=== PATIENT | male | born 1960 | race Caucasian/White ===

== ENCOUNTER → 2022-10-28 | Outpatient (CLI) | payer OTHER, SELFPAY ==
--- NOTE | 2022-10-28 15:04 | CT_ITS ---
EXAM: CT RIGHT LOWER EXTREMITY WITHOUT INTRAVENOUS CONTRAST CLINICAL INDICATION: PRE OP WAS TECHNIQUE: Helically acquired images were obtained of the right lower extremity without intravenous contrast. 2-D reformats were performed by the technologist. CTDIvol = ( 18.76 ) mGy, DLP = ( 1131.31 ) mGycm This CT exam was performed using one or more of the following dose reduction techniques: automated exposure control, adjustment of the mA and/or kV according to patient size, and/or use of iterative reconstruction technique. This report was created using Trend[employer] report Spotjournal technology. COMPARISON: None. FINDINGS: BONES/JOINTS: [id number] suprapatellar joint effusion. No acute or healing fracture or malalignment. No unusual lytic or sclerotic lesions of bone. Moderate osteoarthrosis of the medial femorotibial compartment of the knee. Synovial herniation pits at the right anterolateral femoral neck. Moderate right hip osteoarthrosis. Small posterior calcaneal enthesophyte. SOFT TISSUES: Fat-containing right inguinal hernia. No soft tissue swelling or gas. No radiopaque foreign body. VASCULATURE: Prominent venous varicosities about the knee/lower extremity. Peripheral vascular calcifications involving the extremity. CT/Extremity Lower without Contra IMPRESSION: 1. Preoperative planning study showing degenerative changes involving the joints. 2. Small to moderate suprapatellar joint effusion. 3. No acute or healing fracture or malalignment. 4. Additionally ancillary findings as above. Electronically Signed: Vikram Phan MD at 22:10 EST ,
== END | disposition home or self-care (01) ==
LOC: CT 15:04
PROVIDERS: PCP Family Medicine; Referring Provider Orthopaedic Surgery; Visit Provider Orthopaedic Surgery
DX: M17.11 Unilateral primary osteoarthritis, right knee (principal)
CPT/HCPCS: 73700

== ENCOUNTER 2022-12-13 16:01 | Observation (INO) | payer OTHER, SELFPAY ==
--- NOTE | 2022-12-03 12:10 | RAD_ITS ---
STUDY: X-RAY CHEST REASON FOR EXAM: Male, 62 years old. Preoperative evaluation. TECHNIQUE: Frontal and lateral views of the chest. COMPARISON: None. FINDINGS: The lungs are clear and expanded. There is no demonstrated pleural abnormality. Cardiomegaly with sternotomy wires and single lead cardiac pacer. Normal mediastinum and eliane. Normal visualized pulmonary arteries. Aortic tortuosity. Diffuse thoracic spondylosis. Normal visualized ribs, clavicles, and shoulders. There is no demonstrated abnormality of the visualized soft tissue structures of the upper abdomen. RAD/Chest PA and Lateral IMPRESSION: Cardiomegaly with no acute or active cardiopulmonary disease. Electronically Signed: Dakota Basilio, at 13:23 EST ,
[2022-12-03 12:29] LABS: Absolute Lymphocyte Count 2.29 X10^3/uL (0.83-4.51); Absolute Neutrophil Count 5.3 X10^3/uL (2.0-7.7); Basophil# 0.03 X10^3/uL; Basophil% 0.4 % (0-1); Eosinophil# 0.13 X10^3/uL; Eosinophils% 1.5 % (0-5); Hematocrit 39.7 % (40-54); Hemoglobin 12.7 g/dL (13.0-16.5); Lymphocyte # 2.29 X10^3/ul (0.83-4.51); Lymphocyte % 27.1 % (19-41); Mean Corpuscular Hgb 31.1 pg (27.0-32.0); Mean Corpuscular Volume 97.3 fL (80-94); Monocyte# 0.63 X10^3/uL; Monocyte% 7.4 % (0-10); NRBC Flagged by Analyzer 0 % (0-5); Neutrophil # 5.33 X10^3/uL (2.7-7.7); Platelet Count 194 K/mm3 (150-450); RBC Distribution Width CV 13.2 % (11.6-14.6); Red Blood Count 4.08 M/mm3 (4.6-6.2); White Blood Count 8.5 K/mm3 (4.4-11.0)
[2022-12-03 12:55] LABS: Anion Gap 5 (5-15); BUN 13 mg/dL (7-18); BUN/Creat Ratio 15.6 RATIO (10-20); Calcium,Total 8.9 mg/dL (8.5-10.1); Chloride 104 mmol/L (98-107); Creatinine, Serum 0.84 mg/dL (0.70-1.30); EST Glomerular Filtration Rate 99 mL/min (>60); Est Glom Filt Rate - Afr Amer 120 mL/min (>60); Glucose 108 mg/dL (74-106); Magnesium 2.1 mg/dL (1.6-2.6); Potassium 4.2 mmol/L (3.5-5.1); Sodium Level 141 mmol/L (136-145)
[2022-12-13] VITALS (19 sets, daily range): BP systolic 117–130; BP diastolic 63–94; PULSE 71–92; RESP 14–19; TEMP 36.2–36.9; O2SAT 94–100; BMI 39.8; BMI 40.2
--- NOTE | 2022-12-13 | KNEE_PTH ---
PATIENT: SARAH BALBUENA LOC: [facility] U#:[id number] AGE/SX: 62/M ROOM: [facility] RE12/13/[address]: Dr. Chaka Zavala MD : 1960 BED: 1 DIS: 12/14/2022 SPEC #: [id number] RECD: 12/13/22 16:23 STATUS: HENRY REPadmini #: [id number] CAITLIN: 12/13/22 00:[address]: Serge García DEPT: SURGICAL PATHOLOGY RECD BY: Deandre Lake ENTERED: 12/14/22 09:06 SP TYPE: TOTAL KNEE OTHR DR: MD Dr. Angela Ambrose MD Dr. Ben Weeman, MD Dr. David Kittoe, MD Dr. Douglas Raber, MD Dr. Rodney Miller, MD Tissues: Knee, NOS Procedures: Decalcification bone/plaque Surgery Specimen Level IV Comments: @ Ordering doctor for DEC edited from to DR.[email or web address] Alvarenga by DENIZ at 12/14/22 1326 @ Ordering doctor for SUIV edited from to DR.[email or web address] Alvarenga by DENIZ at 12/14/22 1326 @ Submitting doctor edited from to DR.[email or web address] Alvarenga by DENIZ at 12/14/22 1326 HEADER OPERATION: ERAS, total knee replacement PRE-OP DIAGNOSIS: Osteoarthritis right knee TISSUE SUBMITTED: Right knee bone and tissue MICROSCOPIC DIAGNOSIS Bone and tissue of right knee, total knee resection: Severe degenerative joint disease. Mild synovial hyperplasia. AM:ny 12/17/2022 MICROSCOPIC DESCRIPTION Slides are reviewed. GROSS DESCRIPTION Received is one container designated bone and soft tissue right knee. The specimen consists of multiple fragments of cunha-yellow bone measuring in aggregate 17 x 15 x 2 cm. Also in the specimen container are multiple fragments of yellow-white soft tissue measuring in aggregate 9 x 8 x 2.5 cm. A number of bony fragments contain articular surfaces consistent with tibial plateau and femoral condyle and displaying prominent osteophyte formation, eburnation, and bone erosion. Program Counselor sections are submitted in two cassettes as follows: 1 - soft tissue, 2 - bone after decalcification. / AM:ny 12/14/2022 TC:5 CPT: 12963, 13154
[2022-12-13 10:56] LABS: Bedside Glucose 88 mg/dL (74-106)
[2022-12-13] MEDS: Lactated Ringers 1,000 ML 15 ML IV ×2 (10:57→15:30)
[2022-12-13] MEDS: Gabapentin 600 MG Tablet PO (10:58)
[2022-12-13] MEDS: Celecoxib 200 MG Capsule 400 MG PO (10:58)
[2022-12-13] MEDS: Acetaminophen 500 MG Tablet 1000 MG PO ×2 (10:58→22:19)
[2022-12-13] MEDS: Scopolamine 1mg/72hr Patch 1 PATCH TD ×2 (10:58→14:30)
[2022-12-13] MEDS: TXA 1000mg in NS100 100ml (IVPB at Closure) 660 MG IV (14:16)
[2022-12-13] MEDS: dexAMETHasone 10 MG/ML Vial IV (14:40)
[2022-12-13] MEDS: TXA 1000mg in NS100 100ml (IVPB at Incision) 660 MG IV (15:38)
--- NOTE | 2022-12-13 15:52 | OP.PCM_ITS ---
Problems Associated Problem List Diagnoses (1) Arthritis of knee, right: Operative Report Date of Procedure: 12/13/22 Preoperative diagnosis: [Right ] knee severe osteoarthritis Postoperative diagnosis: Same Title of procedure : [R] total knee replacement Surgeon: Serge García MD Pattern Marking Supervisor: Rowena Ambriz PA-C Anesthesia: Spinal, adductor canal nerve block Anesthesiologist: Dr. Nixon Special medications: Ancef 3 g IV, tranexamic acid 1 g IV x2 EBL: 50 Tourniquet time 63 minutes Indications for surgery: Patient is a [62]-year-old [male] with a history of knee arthritis appropriately treated and failed conservative measures and wished to proceed with total knee replacement. Patient was cleared for surgery by the medical doctor and has been evaluated by the anesthesia staff Findings: Intraoperative findings showed severe arthritis of the knee. Patient underwent knee replacement using OpenSpan triathlon total knee components. Cemented femur sixe 6 CR, Press-fit , size [7 tibia, [35 x 10] asymmetric X3 patella, size [7-10 CS] X3 tibial polyethylene insert, knee was nicely balanced. Patella tracked well. Patient underwent standard wound closure in layers. Vicryl and strata fix sutures utilized with skin mavis. production assistant, physician teacher's assistant, was utilized throughout the entire procedure. They were vital in helping with patient positioning, holding of retractors, exposing the tissues adequately for safe completion of the procedure including cutting of the bone, helping appellate court judge appropriate alignment and sizing of the components, implantation of the components, as well as wound closure, bandage application, and safe patient transfer. Without surgical resident, physician teacher's assistant, surgical time would have been significantly increased, and surgical outcome could have been less optimal. Description of procedure: The patient was taken to the OR, transferred to the OR table. They were given a spinal anesthetic. Ancef was given IV preoperatively. Tranexamic acid was given IV preoperatively. Well-padded tourniquet was applied to the upper thigh of the operative leg. Nonoperative leg had a RIYA hose and SCD on throughout. Operative limb was prepped padded and draped in usual orthopedic sterile fashion for the procedure. We began by injecting the pain relieving solution in the anterior superior aspect of the knee region. The limb was exsanguinated, and the tourniquet was applied to 300 mmHg. Made a midline incision through skin, subcutaneous tissue, bringing down us on the extensor mechanism. Medial parapatellar arthrotomy was carried out. Straw-colored joint fluid was evacuated. We raised a sleeve of tissue off the upper medial tibia. Resected some of the infrapatellar fat pad. We remove degenerative medial and lateral meniscus. Removed bone spurs from about the patella. We removed tissue off the anterior aspect of the distal femur. Patella was translated laterally and/or everted as needed throughout the procedure. ACL was resected. PCL was preserved. Collateral ligaments were preserved. Physician placed the retractors and teacher's assistant held retractors protecting above ligaments throughout the procedure. Cartilage was removed from the distal femur and upper tibia at the appropriate locations. Next custom cutting block was applied to the front of the femur. Appropriate external rotation . Distal femoral cut carried out. 4-in-1 cutting premade block was applied to the distal femur and held in place with 4 pins. Pattern Marking Supervisor again held retractors to protect the soft tissues while surgeon performed anterior, posterior, and chamfer cuts. Bony fragments were removed. PCL retractor was placed and collateral ligament protectors placed by the surgeon, held by the assistance. Tibial external alignment guide was utilized under standard technique going down the shaft of the tibia, to the base of the second metatarsal. Appropriate posterior slope was built in. Pattern Marking Supervisor help appellate court judge alignment. Cutting block was held in place with 3 pins. Again checked the external alignment. Tibial cut carried out with a saw while the teacher's assistant held retractors protecting the soft tissues about the anterior, medial, lateral, and posterior knee. Bone fragment removed. We then sized off the upper tibia with the help of the teacher's assistant. We then checked flexion extension gaps finding them to be adequate and equal. Next the distal femoral trial was applied. Tibial tray was allowed to freefloat with a 9 mm insert. Knee was flexed and extended an external alignment guide is utilized. Tibial trial was pinned in place. Drill holes were placed into the distal femoral trial and it was removed. Punch was used on the upper tibial component and that was removed. The sclerotic bone was softened with a sharp pin. Bone spurs removed from the posterior medial and posterior lateral aspect of the femur while the teacher's assistant lifted up on the distal femur and exposed each compartment. Patella was everted and measured and appropriate resection was carried out while the teacher's assistant held the guide and patella in good position. Patellar remnant measured to be at or just greater than 14 mm. Patella was sized. Clamp was utilized. 3 drill holes were placed through the clamp held by the teacher's assistant. Trial patella was placed and removed. Bleeding was controlled at the back of the knee with the bovey. Posterior knee soft tissues were carefully injected with pain relieving solution. Components were checked and open. Two full batches of bone cement were mixed. Knee was thoroughly irrigated with Irrisept and sterile Betadine.. The bony surfaces cleaned and dried. We press- fit the tibia, cemented femur, and press fit patella component.. Pattern Marking Supervisor held retractors exposing the bony surfaces of the tibia and femur which were hammered in position. Patella clamped into position. We re-trialed with the help of the teacher's assistant and then placed the appropriate sized polyethylene component after cement hardened. We thoroughly irrigated and debrided the knee. Bleeding controlled with the Bovie. Knee was again thoroughly irrigated with sterile Betadine and Irrisept and saline. Patella noted to track nicely. We repaired the arthrotomy with a combination of #1 Vicryl and #2 strata fix. We did a mid layer of 1 Vicryl and #1 strata fix running. We then did inverted 2-0 vicryl . Preston used on the skin.. Mepilex dressing applied. RIYA hose and SCDs applied. Patient was awoken from their anesthetic, transferred back to their own bed and recovery room in satisfactory condition. Second dose of IV Tranexamic acid was given while closing wound. Patient was observation status, appropriate IV antibiotic to be utilized as well as medication for DVT prevention. Hopeful discharge tomorrow. Physical therapy will be consulted. This note was generated with Talko dictation software. It may contain incorrect words, spelling, and punctuation that were not noted in checking the note before signing.
--- NOTE | 2022-12-13 16:42 | SUR.PHASEI ---
Addendum entered by Amanda Jeter 12/13/22 18:12: Tomás Ayala, Venkat, Carrie all at bedside. Consensus to have cardiac monitoring overnight. Awaiting nerve block before transferring to floor. Original Note: PACU ARRIVAL, EKG SHOWS INVERTED & DEPRESSED T-WAVES ON EKG, ONLY RARE VENTRICULAR PACER SPIKE. PATIENT DENIES ANY CHEST PAIN, SOB, DIFFICULTY BREATHING, ANY OTHER RADIATING PAIN. NOTIFIED DR AYALA WHO ORDERED 12-LEAD EKG. 1658 BOTH TOMÁS AYALA & ZACKARY, ANESTHESIA, AT BEDSIDE TO REVIEW EKG, ORDERED CARDIAC ENZYME SERIES, ASA 325 MG PO, NTG 1 PASTE NOW. CHARGE NURSE UPDATED IN WAITING ROOM. DR AYALA WILL NOTIFY HOSPITALIST, DR RAYMUNDO TO UPDATE SURGEON DR PATY BROWN. PATIENT CONTINUES TO DENY ANY C/O OTHER BLE DISCOMFORT WHICH HE STATES IS CHRONIC IF HE'S IMMOBILE TOO LONG.
--- NOTE | 2022-12-13 16:43 | PN.HOSP_ITS ---
Subjective Subjective Patient in PACU with report of block to right lower extremity starting to wear off with no severe pain but mild discomfort, no paresthesias or shooting pain. He denies any recent chest discomfort or dyspnea. Hospital service called by orthopedic surgery for evaluation but also by anesthesia secondary to concerns for EKG changes however once reviewed by cardiology they noted that likely this is just secondary to pacemaker status as there were new diffuse T wave inversions but again patient is completely asymptomatic and initial troponin is unremarkable. Patient denies fevers, chills, nausea, emesis, abdominal pain, chest pain or dyspnea. Objective Data Objective Data Vital Signs: Vital Signs Temp Pulse Resp BP Pulse Ox O2 Del Method 97.2 F L 71 19 H 127/84 H 94 Room Air 12/13/22 10:52 12/13/22 10:52 12/13/22 10:52 12/13/22 10:52 12/13/22 10:52 12/13/22 10:52 Oxygen Delivery Method Room Air Weight: 301 lb 13.005 oz Body Mass Index (BMI) 39.8 Intake & Output: Intake and Output for Last 24 Hours 12/11/22 12/12/22 12/13/22 23:59 23:59 23:59 Intake Total 335 / 335 Balance 335 / 335 Lab / Micro Data Result Diagrams: 12/03/22 11:56 12/03/22 11:56 Labs: Laboratory Results - last 24 hr 12/13/22 10:36: POC Glucose 88 Micro: Microbiology 12/03/22 11:56 Nasal Secretion Nasal Screen MRSA/MSSA - Final Physical Exam Narrative Physical Examination: General: Awake, alert, oriented x 3 and cooperative, seated upright in the PACU bed, mildly fatigued but no acute distress, no chest discomfort no dyspnea at this time Skin: Normal color, normal turgor, no icterus, no cyanosis except for recent right total knee with a cement with dressing in place, no drainage. HEENT: AT/NC, EOMI, PERRLA, mildly dry MM, no carotid bruits or JVD noted; however, thickened neck makes evaluation difficult. Lungs: Distant, diminished bases, appropriate effort, no rales, ronchi or w heezing. Heart: Currently regular rate and rhythm; no gallop, rub audible, status post prior mitral valve repair with evident sternotomy incision well-healed. Abdomen: Soft, morbidly obese, NTTP, ND, distant normal BS, no HSM. Extremities: No cyanosis, no clubbing, mild right distal nonpitting edema expected given recent right total knee replacement, bilateral lower extremity sensation intact, peripheral pulses intact, block wearing off. Neurological: Patient awake, alert, oriented as noted, cognitive function intact; pupils equally reactive to light and accommodation, cranial nerves II- XII grossly normal, moving all 4 extremities, no focal deficits, strength given recent OR moderately to severely global decreased but improving. Psychiatric: Affect appears mildly fatigued otherwise normal, no acute evidence of depressive or anxiety feelings. Assessment & Plan Assessment/Plan (1) Acute electrocardiogram changes: PLAN: Plan The patient is a 62 y/o M w/ PMHx: Morbid Obesity, Valvular Heart Disease s/p MV repair following with Cardiology in [place], PAF s/p MAZE, Tachy-Torsten syndrome s/p pacemaker placement, Chronic anemia/iron deficiency anemia, Former tobacco use who presents to the [facility] on 12/13/22 secondary to history of severe R knee osteoarthritis, failed outpatient conservative interventions for planned right total knee replacement. #1. Severe Osteoarthritis, right knee: Failed conservative therapies and treatments, admitted per Dr. García for planned right total knee replacement 12/13/2022, post-operative pain management, bowel regimen, per discussion with Dr. García we will plan resumption of anticoagulant therapy in a.m. however per his report given recent joint plans pulse dose fashion, once able would strongly recommend that he resume his full strength dosing, PT/OT/CM per Orthopedic surgery discretion. #2. EKG changes initially concerning for new evidence of ischemia, most likely secondary to pacemaker status: In the PACU EKG obtained secondary to telemetry concerns with noted diffuse T wave and electrical inversion compared to previous, EKGs reviewed per cardiology and felt this was likely secondary to patient's pacemaker status especially given no chest pain, asymptomatic with recent unremarkable stress test and echocardiogram prior to his surgical intervention with initial troponin negative. Will transition to PCU from PACU be cautious and continue to cycle cardiac troponins per cardiology recommendation. Magnesium level requested for a.m. #3. Valvular heart disease: Patient status post mitral valve repair, per discussion with patient he never had any coronary disease nor any stent placements, reportedly had unremarkable echocardiogram and stress testing prior to recent procedure. #4. PAF: We will continue patient home diltiazem, digoxin regimen as well as metoprolol and once surgery is amenable transition to full dose of patient's Xarelto regimen. #5. Tachybradycardia syndrome: Status post pacemaker placement, likely resp onsible for the EKG changes as noted #2 per cardiology. #6. Hypertension: Continue home regimen including metoprolol, diltiazem, PRN hydralazine. #7. Hyperlipidemia: We will continue patient on statin therapy. #8. Chronic anemia/iron deficiency anemia: Repeat CBC noted for a.m., will continue iron supplementation #9. Morbid Obesity: Weight loss and lifestyle changes encouraged. #10. Allergic rhinitis: Continue patient home loratadine regimen. #11. GERD: We will continue patient on PPI. #12. DVT prophylaxis: SCDs, as noted plan resumption of Xarelto I will though from discussion with orthopedic surgery not full strength with continued close monitoring to assure no bleeding with resumption of full strength within the next 48 hours if remains appropriate. Admission Evaluation Time spent evaluating chart, patient history, patient evaluation, care planning and discussion with specialists: 55 minutes. Charges/Coding Visit Charges Inpatient E&M: 90770 Subs Hosp L3 Reason for Visit Reason for Visit: Diagnoses Unilateral primary osteoarthritis, right knee (12/13/22) Encounter for other preprocedural examination (12/13/22)
--- NOTE | 2022-12-13 16:50 | EKG12_ITS ---
Test Reason : Blood Pressure : / mmHG Vent. Rate : 090 BPM Atrial Rate : 086 BPM P-R Int : 000 ms QRS Dur : 086 ms QT Int : 354 ms P-R-T Axes : 000 045 215 degrees QTc Int : [address] & T wave abnormality, consider inferior ischemia ST & T wave abnormality, consider anterolateral ischemia Abnormal ECG No previous ECGs available Confirmed by JACEK HENRY, PATY ([id number]), editor publications MICKEY LANGE ([id number]) on 12/16/2022 12:37:29 PM Referred By: Serge García Confirmed By:PATY READ MD
--- NOTE | 2022-12-13 17:00 | RAD_ITS ---
STUDY: X-RAY - RIGHT KNEE REASON FOR EXAM: Male, 62 years old. Postop from knee replacement surgery TECHNIQUE: 2 view(s) of the knee. COMPARISON: None. FINDINGS: Patient is status post right knee replacement surgery. Components demonstrate anatomic alignment. No plain film evidence of postoperative complication. Normal postoperative soft tissue swelling and subcutaneous emphysema. RAD/Knee 1 or 2 Views IMPRESSION: Replaced right knee joint demonstrates anatomic alignment. No plain film evidence of postoperative complication Electronically Signed: Radu Galvan MD at 17:14 EST ,
[2022-12-13] MEDS: Nitroglycerin Oint 1 INCH PACKET TD (17:10)
[2022-12-13] MEDS: Aspirin 81 MG TAB.CHEW 325 MG PO (17:13)
[2022-12-13 17:37] LABS: Troponin-I HS 10 pg/mL (3.0-78.0)
[2022-12-13 20:48] LABS: Troponin-I HS 9 pg/mL (3.0-78.0)
[2022-12-13] MEDS: Morphine 2 MG/ML Syringe IV (21:03)
[2022-12-13] MEDS: Lactated Ringers 1,000 ML 125 ML IV (22:18)
[2022-12-13] MEDS: Senna/Docusate Sodium 1 Tablet 2 TABLET PO (22:19)
[2022-12-13] MEDS: Digoxin 250 MCG Tablet PO (22:19)
[2022-12-13] MEDS: Pantoprazole Sodium 20 MG Tablet PO (22:19)
[2022-12-13] MEDS: Cefazolin 1 GM/50 ML BAG IV (22:25)
[2022-12-13] MEDS: oxyCODONE 5 MG Tablet PO (22:26)
[2022-12-13] MEDS: Metoprolol(XL)Succ 100 MG Tablet PO (22:50)
[2022-12-13] MEDS: Morphine 4 MG/ML Syringe IV (23:59)
[2022-12-14] VITALS (7 sets, daily range): BP systolic 106–116; BP diastolic 60–80; PULSE 60–75; RESP 14–16; TEMP 36.4–36.7; O2SAT 91–97
[2022-12-14] LABS: Troponin-I HS 6 pg/mL (3.0-78.0)
[2022-12-14] MEDS: 0.9% NaCl Peripheral Flush Adult/Peds IV (00:03)
[2022-12-14] MEDS: oxyCODONE 5 MG Tablet PO ×3 (03:47→13:44)
[2022-12-14] MEDS: Cefazolin 1 GM/50 ML BAG IV (05:48)
[2022-12-14] MEDS: Acetaminophen 500 MG Tablet 1000 MG PO ×2 (06:05→13:43)
[2022-12-14] MEDS: Rivaroxaban 10 MG Tablet PO (06:06)
[2022-12-14 06:52] LABS: Hematocrit 34.9 % (40-54); Hemoglobin 11.4 g/dL (13.0-16.5); Mean Corp Hgb Conc 32.7 g/dL (32-36); Mean Corpuscular Hgb 31.7 pg (27.0-32.0); Mean Corpuscular Volume 96.9 fL (80-94); Mean Platelet Vol. 9.8 fl (6.2-12.0); Platelet Count 203 K/mm3 (150-450); RBC Distribution Width CV 13.2 % (11.6-14.6); RBC Distribution Width SD 47.4 fl (35.1-43.9); White Blood Count 12.6 K/mm3 (4.4-11.0)
[2022-12-14 07:20] LABS: Anion Gap 8 (5-15); BUN 13 mg/dL (7-18); BUN/Creat Ratio 16.5 RATIO (10-20); Calcium,Total 8.4 mg/dL (8.5-10.1); Chloride 100 mmol/L (98-107); Creatinine, Serum 0.79 mg/dL (0.70-1.30); EST Glomerular Filtration Rate 107 mL/min (>60); Est Glom Filt Rate - Afr Amer 129 mL/min (>60); Estimated Creatinine Clearance 112.38 ml/min; Glucose 131 mg/dL (74-106); Magnesium 2.1 mg/dL (1.6-2.6); Potassium 4.3 mmol/L (3.5-5.1); Sodium Level 136 mmol/L (136-145)
--- NOTE | 2022-12-14 07:53 | PN.ORTHO_ITS ---
Subjective Subjective Patient underwent right total knee arthroplasty yesterday pain in the right knee has been well controlled currently denies chest pain shortness of breath dizziness or calf pain. No adverse events overnight. Hospitalist and cardiology were consulted while patient was in the PACU due to EKG changes with which it was thought to be secondary to his pacemaker. He has had no symptoms as a result of this. Patient would like to plan for a discharge to home later today he has made arrangements for outpatient physical therapy to start December 16, 2022. Objective Data Objective Data Patient is alert and oriented x3 no acute distress at rest breathing easily without respiratory distress. Inspection of right knee is with dry waterproof dressing intact without active drainage erythema warmth or signs of infection. Negative Mackenzie bilaterally without signs of DVT. Pedal pulses present equal bilaterally. Sensation intact to light touch bilateral lower extremities. Patient is able to actively plantar and dorsiflex bilateral ankles against resistance neurovascularly intact. Postoperative x-rays were reviewed are consistent with postoperative changes secondary to right total knee arthroplasty prosthesis in good position without evidence of hardware failure or loosening skin mavis are intact over the surgical site Vital Signs: Vital Signs Temp Pulse Resp BP Pulse Ox O2 Del Method O2 Flow Rate 97.5 F L 64 14 107/61 97 Nasal Cannula 2 12/14/22 03:46 12/14/22 03:46 12/14/22 03:46 12/14/22 03:46 12/14/22 03:46 12/14/22 03:46 12/14/22 03:46 Oxygen Flow Rate (L/min) 2 Oxygen Delivery Method Nasal Cannula Weight: 138.5 kg Body Mass Index (BMI) 40.2 Intake & Output: Intake and Output for Last 24 Hours 12/12/22 12/13/22 12/14/22 23:59 23:59 23:59 Intake Total 1512 / 3012 1978.5 / 1978.5 Output Total 50 / 750 1100 / 1100 Balance 1462 / 2262 878.5 / 878.5 Lab / Micro Data Result Diagrams: 12/14/22 06:30 12/14/22 06:30 Labs: Laboratory Results - last 24 hr 12/13/22 10:36: POC Glucose 88 12/13/22 17:09: Troponin I High Sens 10 12/13/22 19:45: Troponin I High Sens 9 12/13/22 22:55: Troponin I High Sens 6 12/14/22 06:30: WBC 12.6 H, RBC 3.60 L, Hgb 11.4 L, Hct 34.9 L, MCV 96.9 H, MCH 31.7, MCHC 32.7, RDW Std Deviation 47.4 H, RDW Coeff of Marsha 13.2, Plt Count 203, MPV 9.8 12/14/22 06:30: Sodium 136, Potassium 4.3, Chloride 100, Carbon Dioxide 28.0, Anion Gap 8, BUN 13, Creatinine 0.79, Estim Creat Clear Calc 112.38, Est GFR (MDRD) Af Amer 129, Est GFR (MDRD) Non-Af 107, BUN/Creatinine Ratio 16.5, Glucose 131 H, Calcium 8.4 L, Magnesium 2.1 Micro: Microbiology 12/03/22 11:56 Nasal Secretion Nasal Screen MRSA/MSSA - Final Radiography Diagnostic Testing: Radiology Impression Knee X-Ray 12/13/22 17:00 IMPRESSION: Replaced right knee joint demonstrates anatomic alignment. No plain film evidence of postoperative complication Electronically Signed: Radu Galvan MD at 17:14 EST Reading Location ID and State: [address] [place] [address] , Service support , Assessment & Plan Assessment/Plan (1) Arthritis of knee, right: PLAN: - Status post right total knee arthroplasty postoperative day #1 -Begin PT/OT weightbearing as tolerated right lower extremity with a walker -DVT prophylaxis bilateral teds SCDs and we will resume Xarelto but at half dose compared to preoperative dose he will plan to use Xarelto 10 mg 1 p.o. daily x5 to 7 days. As long as patient is not showing active bleeding or large hemarthrosis at surgical site we will plan to resume his preoperative dose of Xarelto 20 mg 1 p.o. daily -Leukocytosis afebrile without acute signs of infection likely resulting from Decadron versus acute stress response anticipate resolution over the next several days -Encourage incentive spirometry -Continue oxycodone and acetaminophen as prescribed for pain we will plan for discharge with these medications -Continue postoperative management per hospitalist and student services dean -Continue discharge planning with case management -Patient is orthopedically stable and okay for discharge to home today if cleared medically having adequate pain control and doing well with physical therapy we will plan to see him in follow-up 2 weeks postoperatively for reassessment with x-rays and staple removal
[2022-12-14] MEDS: Lactated Ringers 1,000 ML 125 ML IV (08:13)
--- NOTE | 2022-12-14 08:25 | PCM.PN.HOSP ---
Subjective Subjective Patient is a 62-year-old male who underwent right total knee replacement by Dr. García on 12/13/2022. The hospitalist service was consulted to assist with management of patient medical comorbidities Objective Data Objective Data Vital Signs: Vital Signs Temp Pulse Resp BP Pulse Ox O2 Del Method O2 Flow Rate 97.5 F L 64 14 107/61 97 Nasal Cannula 2 12/14/22 03:46 12/14/22 03:46 12/14/22 03:46 12/14/22 03:46 12/14/22 03:46 12/14/22 03:46 12/14/22 03:46 Oxygen Flow Rate (L/min) 2 Oxygen Delivery Method Nasal Cannula Weight: 138.5 kg Body Mass Index (BMI) 40.2 Intake & Output: Intake and Output for Last 24 Hours 12/12/22 12/13/22 12/14/22 23:59 23:59 23:59 Intake Total 1512 / 3012 2953.5 / 2953.5 Output Total 50 / 750 1100 / 1100 Balance 1462 / 2262 1853.5 / 1853.5 Lab / Micro Data Result Diagrams: 12/14/22 06:30 12/14/22 06:30 Labs: Laboratory Results - last 24 hr 12/13/22 10:36: POC Glucose 88 12/13/22 17:09: Troponin I High Sens 10 12/13/22 19:45: Troponin I High Sens 9 12/13/22 22:55: Troponin I High Sens 6 12/14/22 06:30: WBC 12.6 H, RBC 3.60 L, Hgb 11.4 L, Hct 34.9 L, MCV 96.9 H, MCH 31.7, MCHC 32.7, RDW Std Deviation 47.4 H, RDW Coeff of Marsha 13.2, Plt Count 203, MPV 9.8 12/14/22 06:30: Sodium 136, Potassium 4.3, Chloride 100, Carbon Dioxide 28.0, Anion Gap 8, BUN 13, Creatinine 0.79, Estim Creat Clear Calc 112.38, Est GFR (MDRD) Af Amer 129, Est GFR (MDRD) Non-Af 107, BUN/Creatinine Ratio 16.5, Glucose 131 H, Calcium 8.4 L, Magnesium 2.1 Micro: Microbiology 12/03/22 11:56 Nasal Secretion Nasal Screen MRSA/MSSA - Final Radiography Diagnostic Testing: Radiology Impression Knee X-Ray 12/13/22 17:00 IMPRESSION: Replaced right knee joint demonstrates anatomic alignment. No plain film evidence of postoperative complication Electronically Signed: Radu Galvan MD at 17:14 EST Reading Location ID and State: [address] [place] [address] , Service support , Physical Exam Narrative GENERAL: cooperative HEENT: Atraumatic; normocephalic EYES; Anicteric, Normal Conjunctiva NECK; supple, normal thyroid, RESPIRATORY: Diminished to auscultation CARDIOVASCULAR: Regular S1 S2, GI: soft, normoactive bowel sounds, : No Renal angle tenderness; EXTREMITIES: Right knee in surgical dressing MUSCULOSKELETAL: no muscle wasting NEURO: Awake; no lateralizing signs. SKIN: No Rash PSYCH; Flat affect Assessment & Plan Assessment/Plan (1) Acute electrocardiogram changes: PLAN: Plan Patient is a 62-year-old male who underwent right total knee replacement by Dr. García on 12/13/2022. The hospitalist service was consulted to assist with management of patient medical comorbidities 1. Status post right total knee replacement ? On 12/13/[address] García patient postoperative orders regarding pain management PT OT as well as DVT prophylaxis deferred to primary service 2. Valvular heart disease ? With history of mitral valve repair 3. Paroxysmal A-fib ? Patient rate is controlled with diltiazem as well as digoxin. Patient is on systemic anticoagulation with Xarelto plan is to resume following surgery 4. Conduction system disorder ? Status post pacemaker placement 5. Class III obesity with BMI of 40.3 ? Weight loss advised 6. Hypertension - Blood pressure controlled, home medications continued with dose adjustment as needed 7. Dyslipidemia -Patient is on statin therapy, continued at home dose 8. GERD ? Patient is on omeprazole switch to Protonix 9. DVT prophylaxis ? Resume Xarelto when okay with orthopedic surgery Time spent in the patient's overall evaluation,decision-making process, review of diagnostic data, adjustment of management, discussion with other providers, nursing nursing and ancillary staff involved in patient's care documentation, 38 minutes Charges/Coding Visit Charges Inpatient E&M: 81814 Subs Hosp L2 Reason for Visit Reason for Visit: Diagnoses Other acute postprocedural pain (12/13/22) Unilateral primary osteoarthritis, right knee (12/13/22) Abnormal electrocardiogram [ECG] [EKG] (12/13/22) Encounter for other preprocedural examination (12/13/22)
[2022-12-14] MEDS: Metoprolol(XL)Succ 100 MG Tablet PO (09:19)
[2022-12-14] MEDS: Senna/Docusate Sodium 1 Tablet 2 TABLET PO (09:20)
[2022-12-14] MEDS: Pantoprazole Sodium 20 MG Tablet PO (09:20)
[2022-12-14] MEDS: Atorvastatin Calcium 40 MG Tablet PO (09:20)
[2022-12-14] MEDS: Loratadine 10 MG Tablet PO (09:20)
[2022-12-14] MEDS: Ferrous Sulfate 325 MG Tablet PO (09:20)
--- NOTE | 2022-12-14 10:00 | CASEMGMT ---
PANKAJ HOLM Face to Face with patient for initial transition planning/care coordination assessment. RN CM introduced self and role at [facility]. Patient sitting in chair, alert and oriented. Patient willing to participate in assessment and is able to answer all questions appropriately. Care providers, pharmacy, and demographics verified. Patient wishes to discharge home with outpatient therapy at . Patient states he has no further needs or concerns at this time. CM to follow for discharge planning needs that may arise. PCP: [facility] Specialists: [place] García ortho; Kate, Fusion Operator; Prakash, Cutlet Maker Pork Preferred Pharmacy: [facility] Insurance: MMO Prescription Benefit: yes Living Will/HPOA: none LNOK: Living Arrangements: Patient lives with in a single story home with no step to enter the home. Patient states he was independent at home prior to surgery Transportation: DME/HHC: Patient has tub bench, raised toilet, grab bars, walker at home. Patient is setup with [facility] for outpatient therapy starting 12/16/22. Disposition Plan: Patient to discharge home with outpatient therapy, family support, and follow-up plans in place. Jodi PATTON, RN, CM
[2022-12-14] MEDS: dilTIAZem CD 180 MG Capsule PO (11:52)
--- NOTE | 2022-12-14 12:27 | PCM.DC ---
Discharge Instructions Diet Discharge Diet: 1800 Calorie Control Diet Activity Discharge Activity: May Not Drive (while taking narcotic pain medications.) and Use Walker May shower in (days): 2 (only if incision is dry and without drainage. Do NOT soak/submerge in tub/pool/barr/stream/hot tub.) Ice area for (Minutes): 20 (Every hour as needed for pain and swelling) Weight Bearing Status: Weight bearing as tolerated Keep extremity elevated above heart level: Operative Extremity Additional Activity Instructions:: Wear elastic stockings for 2 weeks after your surgery. Dressing / Incision Call your doctor if your incision/area has: Continuous Slow Oozing, Sudden Increased Bleeding, Increased Pain/ Swelling, Increased Redness and Foul Smelling Discharge Call your doctor if you observe: Fever of 101 or Higher, Shortness of breath, Chest pain and Calf discomfort Remove Dressing in: 5 days Cleanse incision/area with: Soap & Water Additional Dressing/Incision Instructions:: See postoperative orthopedic pink sheet Follow Up Care Please Follow Up With: Rowena Ambriz, RAY When: March 25, 2021 2:15 PM [facility] ([place] [facility]) Test Results: Test results from this visit will be discussed in further detail at your follow-up appointment, if applicable. Discharge Plan Admission Admit Date/Time: 12/13/22 16:01 Attending Provider: Chaka Zavala Primary Care Provider: Trenton Shultz Consulting Providers: Guilherme Woods ; Edwin Nixon ; Angela Robledo ; Serge García Discharge Orders/Prescriptions Prescriptions: New acetaminophen 500 mg Tablet 1,000 mg PO Q8 Qty: 0 0RF oxycodone 5 mg Tablet 5 - 10 mg PO Q4H PRN PRN (Reason: Pain Score 4-10) 7 Days Qty: 60 0RF Xarelto 10 mg Tablet 10 mg PO DAILY@0600 Qty: 7 0RF sennosides-docusate sodium [Stool Softener-Stimulant Laxat] 8.6-50 mg Tablet 2 tab PO BID Qty: 30 0RF Continued atorvastatin 40 mg tablet 40 mg PO DAILY Label Comments: TAKE 1 TABLET BY MOUTH DAILY metoprolol succinate 100 mg tablet extended release 24 hr 100 mg PO BID Label Comments: Take 1 tablet twice daily digoxin 250 mcg (0.25 mg) tablet 0.25 mg PO QHS Label Comments: TAKE 1 TABLET BY MOUTH EVERY DAY omeprazole 20 mg capsule,delayed release(DR/EC) 20 mg PO BID Label Comments: Take 1 capsule twice daily diltiazem HCl 180 mg capsule,ext.rel 24h degradable 180 mg PO 1200 Label Comments: TAKE 1 CAPSULE BY MOUTH ONCE DAILY loratadine 10 mg tablet 10 mg PO DAILY Label Comments: TAKE 1 TABLET BY MOUTH EVERY DAY acyclovir 400 mg tablet 400 mg PO TID PRN (Reason: Cold Sores) Label Comments: TAKE 1 TABLET BY MOUTH THREE TIMES DAILY NEEDED for cold sores. TAKE FOR 5 DAYS when you get a cold sore ferrous sulfate 325 mg (65 mg iron) Tablet 325 mg PO DAILY tizanidine 4 mg Capsule 4 mg PO TID PRN (Reason: Back Pain) Discontinued Xarelto 20 mg tablet 20 mg PO DAILY Label Comments: TAKE 1 TABLET BY MOUTH DAILY AT BEDTIME Rx Instructions: LAST DOSE 12/09/22 Referrals / Follow Up: Trenton Shultz MD [Primary Care Provider] - Disposition Disposition (needs filled in before D/C Order can be placed): Home, Self Care
--- NOTE | 2022-12-14 14:31 | CHAPLAIN ---
Type of Pastoral Visit ___ Initial Visit ___ Follow-up Visit ___ On-call Visit ___ General Patient Visit ___ Spiritual Assessment ___ Family Conference ___ Bereavement ___ Rapid Response ___ Code Blue ___ Other (describe below) Pastoral Care Referral From ___ Patient ___ Family ___ Nurse ___ Physician ___ Sheet Tailer ___ Marine Reporter ___ Other (describe below) Sacrament/Intervention ___ Active listening ___ Anointing ___ Mormon ___ Bereavement ___ Communion ___ Felicia exploration ___ ___ Life review ___ Prayer ___ Reconciliation ___ Sacrament of Sick ___ Supportive presence ___ Wedding ___ Other (describe below) Pastoral Comments offer of support given but patient states that he is being discharged and has no current needs
== END 2022-12-14 08:06 | disposition home or self-care (01) ==
LOC: PCU 12-14 07:13 → MS3 12-14 16:59 → PCU 12-14 16:59 → SDC 12-14 16:59
PROVIDERS: Anesthesiology; Admitting Provider Orthopaedic Surgery; PCP Family Medicine; Referring Provider Orthopaedic Surgery; Visit Provider Internal Medicine
PROC: (CPT 27447; principal; 2022-12-13 12:35)
DX: M17.11 Unilateral primary osteoarthritis, right knee (principal); I48.0 Paroxysmal atrial fibrillation; E66.01 Morbid (severe) obesity due to excess calories; Z68.41 Body mass index [BMI] 40.0-44.9, adult; K21.9 Gastro-esophageal reflux disease without esophagitis; Z79.899 Other long term (current) drug therapy; Z86.16 Personal history of COVID-19; Z95.0 Presence of cardiac pacemaker; Z95.2 Presence of prosthetic heart valve; Z79.01 Long term (current) use of anticoagulants; E78.5 Hyperlipidemia, unspecified; I10 Essential (primary) hypertension; D50.9 Iron deficiency anemia, unspecified; R94.31 Abnormal electrocardiogram [ECG] [EKG]
CPT/HCPCS: 27447; 01402; 64447; 36415; 71046; 73560; 80048; 82962; 83735; 84484; 85025; 85027; 87077; 87081; 88305; 88311; 93005; 94668; 96361; 96365; 96366; 96375; 96376; 97162; 97166; 99221; 99252; C1776; J7120; A4216; G0378; G0463; J2405; J3475